=== PATIENT | female | born 1980 | race African-American/Black ===

== ENCOUNTER 2017-03-05 19:31 | Emergency (ER) | payer SELFPAY ==
[2017-03-05 20:08] VITALS: BP 147/89
--- NOTE | 2017-03-05 20:59 | ER Document Report ---
ED Skin Rash/Insect Bite/Abscs - General Chief Complaint: Insect Bite Stated Complaint: LEFT LEG INJURY Time Seen by Provider: 03/05/17 20:14 Mode of Arrival: Ambulatory Information source: Patient TRAVEL OUTSIDE OF THE [place] IN LAST 30 DAYS: No - HPI Patient complains to provider of: Insect sting Onset: This afternoon Onset/Duration: Sudden Quality of pain: Achy Severity: Mild Skin Character: Urticarial Skin Temperature: Warm Quality of rash: Itchy, Painful Identify cause: Yes Notes: Patient arrives with complaints of being stung by bee earlier today. She states that when she was stung on the left posterior hamstring. She now has swelling to this area. There is mild pain and itching. She denies any difficulty breathing or swallowing. No fever. No nausea, vomiting, diarrhea. No other rashes. She denies any lip or tongue swelling. She has no other complaints at this time. She has taken no medications for this. - Related Data Allergies/Adverse Reactions: No Known Allergies Allergy (Verified 03/05/15 10:15) Past Medical History - Social History Smoking Status: Unknown if Ever Smoked Family History: Arthritis, CAD, CVA, DM, Hyperlipidemia, Hypertension, Malignancy Patient has suicidal ideation: No Patient has homicidal ideation: No Renal/ Medical History: Denies: Hx Peritoneal Dialysis Musculoskeltal Medical History: Reports Hx Musculoskeletal Deformity, Reports Hx Musculoskeletal Trauma Psychiatric Medical History: Reports: Hx Depression Traumatic Medical History: Reports: Hx Fractures - Left wrist Past Surgical History: Reports: Hx Section - x 3, Hx Orthopedic Surgery - l wrist, Hx Tubal Ligation - Immunizations Immunizations up to date: Yes Hx Diphtheria, Pertussis, Tetanus Vaccination: Yes Review of Systems - Review of Systems -: Yes All other systems reviewed and negative Physical Exam - Vital signs Vitals: Temp Pulse Resp BP Pulse Ox 98.8 F 73 18 147/89 H 100 03/05/17 20:05 03/05/17 20:05 03/05/17 20:05 03/05/17 20:05 03/05/17 20:05 - Notes Notes: GENERAL: alert, cooperative, nontoxic, no distress. HEAD: normocephalic, atraumatic EYES: conjunctiva pink without discharge, no external redness or swelling. EARS: no external swelling, no external redness NOSE: atraumatic, no external swelling MOUTH/THROAT: mucous membranes moist and pink. No lip or tongue swelling. No trismus or drooling. NECK: soft, supple, full range of motion, no meningismus. CHEST: no distress, lungs clear and equal throughout. No wheezing, rales, rhonchi. CARDIAC: regular rate and rhythm, no murmur, normal capillary refill, normal pulses. BACK: full range of motion, no CVA tenderness. EXTREMITIES: full range of motion of all extremities. No redness, no swelling. NEURO: alert and oriented 3, no focal deficits, full range of motion of all extremities. PYSCH: appropriate mood, affect. Patient is cooperative. SKIN: pink, warm, dry, no rash. Patient has a large urticarial lesion to the left hamstring. Site of insect sting is present. There is no stinger present. Mild tenderness and increased heat to palpation. No abscess. Compartments are soft. Normal pulse and sensation distally. Course - Re-evaluation Re-evalutation: 03/05/17 20:57 The patient is nontoxic appearing with stable vitals. The patient was stung by Bee earlier today and has a large urticarial lesion to the left posterior leg. There is no sign of infection. She has no systemic symptoms. She has benign exam otherwise. I offered to give the patient a dose of Benadryl and ibuprofen here. The patient states that she prefer to not get any medications here. She states that that is all she needs that she will go ahead and leave. She does not want to wait for her discharge papers. The patient left with instructions to take in a drill and ibuprofen as needed for pain and itching as well as inflammation. Apply ice. A follow-up if she has increased pain, fever, difficulty breathing or swallowing, or has any further concerns. 03/05/17 20:59 The patient is noted to have elevated blood pressure during today's emergency department visit. The patient was informed of this finding. The patient was instructed that this may be related to pre-hypertension and requires further evaluation with a primary care provider. The patient has no hypertensive symptoms at this time. - Vital Signs Vital signs: Temp Pulse Resp BP Pulse Ox 98.8 F 73 18 147/89 H 100 03/05/17 20:05 03/05/17 20:05 03/05/17 20:05 03/05/17 20:05 03/05/17 20:05 Discharge - Discharge Clinical Impression: Insect sting allergy, current reaction Qualifiers: Encounter type: initial encounter Injury intent: undetermined intent Qualified Code(s): T63.484A - Toxic effect of venom of other arthropod, undetermined, initial encounter Disposition: HOME, SELF-CARE Instructions: Acute Allergic Reaction ([facility]), Insect Sting ([facility]), Swollen Insect Bite or Sting ([facility]) Additional Instructions: Take Benadryl and Motrin as needed for pain and itching. Apply ice. Follow-up if not better in 1 week, sooner for increased pain, fever, difficulty breathing or swallowing, or any further concerns. Your blood pressure was elevated during today's visit. Have this rechecked with your doctor. Forms: Elevated Blood Pressure
== END 2017-03-05 20:20 | disposition home or self-care (01) ==
LOC: ER 19:31
DX: T63.441A Toxic effect of venom of bees, accidental (unintentional), initial encounter (principal); L50.9 Urticaria, unspecified; R03.0 Elevated blood-pressure reading, without diagnosis of hypertension
CPT/HCPCS: 99281